=== PATIENT | female | born 1975 ===

== ENCOUNTER 2016-07-17 09:41 | Emergency (ER) | payer OTHER ==
--- NOTE | 2016-07-17 10:58 | ED ORDER SUMMARY ---
..... Patient: MIRIAM WILLIAM OrderSheet [facility] VisitID: [id number] [address] [place] [address] 41y, F Registration Date/Time: 07/17/2016 ORDER SHEET Weight: 79.3 kg (stated) Allergies: No Known Drug Allergy GENERAL ORDERS: MEDICATION ORDERS: DuoNeb Neb Tx 1 unit dose (10:00) (10:12 07/17/2016 Shalonda Espino) (10:12 Jolie) Albuterol Neb Tx 2.5 mg (NOW) (10:12 07/17/2016 Shalonda Espino) (10:13 Eulogioglraymond) IV FLUIDS: Solu-MEDROL IV 125 mg (NOW) (10:12 07/17/2016 Shalonda Espino) (Ack 10:28 MWinterer R.N.) (10:35 MWinterer R.N.) ORDER SHEET NOTES: [Electronically signed by Sanjeev Inman Dr. (10:58 07/17/2016)] [Electronically signed by Peace Johnson R.N. (12:06 07/17/2016)] [Electronically locked/signed by Peace Johnson R.N. (12:06 07/17/2016)]
--- NOTE | 2016-07-17 10:58 | ED NURSING NOTES ---
Clinical Report - Nurses [facility] [address] [place] [address] 07/17/2016 9:40 Patient: MIRIAM WILLIAM TRIAGE Acuity: LEVEL 2. Chief Complaint: DIFFICULTY BREATHING and "ASTHMA ATTACK". Alert. No acute distress. SEPSIS SCREEN: Sepsis Screen. Negative (no infection suspected/documented). --09:49 Peace Johnson R.N. 09:44 07/17/16. BP: 139/71. HR: 86. RR: 32. O2 saturation: 100% on room air. Temp: 97.4 F (oral). Pain level now: 02/23. --09:49 Peace Johnson R.N. Weight: 79.3 kg stated. Height/Length: 64 inches Per Patient. BMI: 30. --09:47 Peace Johnson R.N. Medications Albuterol Sulfate Inhalation. --09:46 Peace Johnson R.N. Glimepiride Oral (Tablet 2 mg) 1 tablet, daily. --09:47 Peace Johnson R.N. The following entry was struck and corrected by Peace Johnson R.N., 09:49 (07/17/16) Reason for correction - other(correction). <<STRICKEN ENTRY-- Glimepiride Oral (Tablet 2 mg) 1/2 tablet, BID. --09:47 Peace Johnson R.N. --END STRIKE>>. Medication/allergy information source: the patient. --09:49 Peace Johnson R.N. Allergies No Known Drug Allergy. --09:47 Peace Johnson R.N. History Arrived by private vehicle. Historian: patient. Accompanied by family. This started just prior to arrival. 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 SOCIAL HX: Never smoker. No alcohol use or drug use. FALL RISK ASSESSMENT: Fall risk assessment completed. No fall risk identified. NUTRITIONAL RISK ASSESSMENT: The nutritional risk assessment revealed no deficiencies. FUNCTIONAL ASSESSMENT: Functional assessment: no impairments noted. LEARNING NEEDS ASSESSMENT: The learning needs assessment revealed no barriers. SKIN INTEGRITY ASSESSMENT: Skin integrity risk assessment completed. No skin integrity risk identified. --09:49 Peace Johnson R.N. PROBLEMS: Asthma. Lumbar Strain. Anxiety Reaction. Diabetes Mellitus. --:47 Peace Johnson R.N. ADDITIONAL SURGERIES: . --09:47 Peace Johnson R.N. Assessment GENERAL / NEURO / PSYCH: Alert. Oriented X 4. Appears in no acute distress. Appears anxious. Florence Coma Scale: 15- eyes open spontaneously (4); best verbal response- oriented x 4 (5); best motor response- obeys commands (6). RESPIRATORY: Moderate respiratory distress. Accessory muscle use. Cough. Wheezing present. CVS: Capillary refill less than 2 seconds. GI / : Abdomen soft and nontender. SKIN: Mucous membranes are pink. Skin is warm and dry. --09:49 Peace Johnson R.N. Interventions ID band on patient. To treatment room. --09:49 Peace Johnson R.N. PHYSICAL ASSESSMENT To room via wheelchair. GENERAL / NEURO / PSYCH: Alert. Oriented X 4. Appears in no acute distress. HEENT: Mucous membranes are pink. RESPIRATORY: Moderate respiratory distress. The patient can speak a few words at a time. Accessory muscle use. Wheezing present. CVS: Capillary refill less than 2 seconds. GI / : Abdomen soft and nontender. SKIN: Skin is warm and dry. Normal skin turgor. --09:49 Peace Johnson R.N. NURSING PROGRESS NOTES 09:50 07/17/16. Patient gowned. Two patient identifiers checked. Call light placed in reach. Side rails up x 1. Bed placed in lowest position. Brakes of bed on. Patient ready for evaluation- chart flagged and ED physician notified. --09:50 Peace Johnson R.N. 09:55 07/17/2016 Site #1 started via IV in the right antecubital space with an 20g angiocath, with aseptic technique and good blood return; one attempt. Blood drawn: rainbow set. Labeled in the presence of the patient and sent to the lab. Saline lock flushed with 10 mL saline. --09:55 Peace Johnson R.N. 09:56 07/17/16. certified surgical tech/first assistant at the patient's bedside. --09:56 Peace Johnson R.N. 10:02 07/17/2016 Duoneb (Ipratropium-Albuterol) Neb TX Nebulizer 1 unit dose given. Given by the respiratory therapist. Allergies verified and confirmed 5 rights. Jun Henriquez --10:12 Jun Henriquez 10:13 07/17/2016 Albuterol Neb TX Nebulizer 1 unit dose given. Given by the respiratory therapist. Allergies verified and confirmed 5 rights. Jun Henriquez --10:13 Jun Henriquez 10:35 07/17/2016 SOLU-MEDROL (MethylPREDNISolone Sodium Succ) IVP 125 mg given over 1 minute(s) via site #1. Allergies verified and confirmed 5 rights. IV patency established. IV site checked: no pain, redness, or swelling. IV flushed thoroughly pre- and post-medication administration. IVP given by RN. --10:35 Peace Johnson R.N. DISPOSITION / DISCHARGE Departure time: 11:10 Jul 17 2016. Condition at departure: improved and stable. No learning barriers present. Discharge instructions provided and reviewed with the patient. Reviewed medication(s) side effects, precautions and dosing information. Prescription(s) given to the patient. Patient verbalized understanding. Written instructions provided in Kiswahili. The patient was discharged by the physician. She was discharged home and accompanied by family. She left the Emergency Department ambulatory and via private vehicle. Family member driving. --12:05 Peace Johnson R.N. 12:04 07/17/16. BP: 118/69. HR: 88. RR: 16. O2 saturation: 100% on room air. Temp: 98.5 F (oral). Pain level now: 0/10. --12:05 Peace Johnson R.N. Locked/Released at 07/17/2016 12:06 by Peace Johnson R.N.
--- NOTE | 2016-07-17 10:58 | ED CLINICAL REPORT ---
Clinical Report - Physicians/Mid Levels [facility] [address] [place] [address] 07/17/2016 9:40 Patient: MIRIAM WILLIAM Time Seen: 0955; initial patient contact. Arrived- By private vehicle. Historian- patient. HISTORY OF PRESENT ILLNESS Chief Complaint: WHEEZING. This started last night and is still present. It was abrupt in onset but is not gone now. The dyspnea is described as moderate. She has had dyspnea at rest. Asthma triggers: unknown. 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 (did not use her inhaler today). Similar symptoms previously: Recent medical care: Not recently seen/assessed. REVIEW OF SYSTEMS No nasal discharge, fever, headache or skin rash. All systems otherwise negative, except as recorded above. PAST HISTORY See nurses notes. SOCIAL HISTORY Never smoker. No alcohol use or drug use. Is a local resident. ADDITIONAL NOTES The nursing notes have been reviewed. PHYSICAL EXAM Vital Signs: 07/17/2016 09:44 BP: 139/71. HR: 86. RR: 32. O2 saturation: 100%. Temp: 97.4 F. Pain level now: 8/10. Blood pressure normal. Oxygen saturation normal. Appearance: Alert. Patient in mild distress. Eyes: Pupils equal, round and reactive to light. Eyes normal inspection. Neck: Normal inspection. Neck supple. CVS: Normal heart rate and rhythm. Heart sounds normal. Pulses normal. Respiratory: Mild respiratory distress with accessory muscle use, retractions, anxiety, tachypnea and hyperventilation. Wheezing present. No stridor, rales or rhonchi. Abdomen: Soft and nontender. No organomegaly. Back: Normal inspection. Skin: Skin warm and dry. Normal skin color. No rash. Normal skin turgor. Extremities: Extremities exhibit normal ROM. No lower extremity edema. PROGRESS AND PROCEDURES Course of Care: the patient is a 41-year-old female presenting for evaluation of wheezing and asthma exacerbation. Patient has a history of asthma. Patient reports that she had run out of her medications at home. Patient otherwise has no other concerns at this time. Patient reports no vision changes, numbness, tingling, weakness. No fevers or chills. Patient does not know what had caused this specific exacerbation. Breathing treatment was ordered. IV placed by RN because of patient's respiratory distress. IV Solu-Medrol be ordered. We'll evaluate patient after breathing treatment has been given. The patient does not significantly improve, we'll consider laboratory evaluation as well as chest x-ray. Patient significantly improved after the first DuoNeb. Patient is much more comfortable and breathing without any signs of distress. Discussion with patient in regards to her symptom. One more breathing treatment will be given as the patient did present in a mild amount of discomfort and would likely benefit from a second breathing treatment. Lungs are clear on reevaluation. We'll await second breathing treatment. After second breathing treatment was given, patient is significantly improved. Patient states she is back to normal. Patient is much more comfortable. There are no signs of respiratory distress. Patien good air throughout all lung arenas without any wheezing at all. I discussed with patient in regards to asthma medication. Patient reports she does not have a nebulizer at home. Prescription will be written for nebulizer as well as refill of her medications. Discussed the patient workup, diagnosis, home care, follow-up, and return precautions. All questions answered. Patient expressed understanding of these instructions and was agreeable to them. Because the pat albuterol and DuoNeb treatments, do not feel patient has AMI or pneumonia or pulmonary embolism. CLINICAL IMPRESSION 07/17/2016 09:44 BP: 139/71. HR: 86. RR: 32. O2 saturation: 100%. Temp: 97.4 F. Pain level now: 8/10. Blood pressure normal. Oxygen saturation normal. Mild persistent asthma with an acute exacerbation. No status asthmaticus. INSTRUCTIONS Warnings: GENERAL WARNINGS: Return or contact your physician immediately if your condition worsens or changes unexpectedly, if not improving as expected, or if other problems arise. Specifically return if pain, vomiting, bleeding, breathing difficulty or fever. Your Current Medications: CONTINUE TAKING THE FOLLOWING MEDICATIONS: Albuterol Sulfate Inhalation. Glimepiride Oral : Tablet 2 mg, 1 tablet daily. Prescription Medications: Albuterol HFA oral inhaler: inhale 1-2 puffs every 4 hours as needed for wheezing, difficulty breathing or shortness of breath. Dispense one (1) unit. No refill. Albuterol 0.083% Inhalation Solution: inhale 1 unit dose (3 mL) via nebulizer every 4 hours as needed for wheezing, difficulty breathing or shortness of breath. Dispense fifty (50) units. No refill. Fluticasone HFA oral inhaler 44 mcg/spray: inhale 1 puff every 24 hours. Rinse mouth after use. Dispense one (1) unit. No refill. Nebulizer machine for use with nebulizer solution. Dispense 1. Follow-up: Return to the emergency department as needed. Follow up with your doctor in three days. Reason for referral: recheck today's concerns. Summary of care provided to patient via paper. Screening today revealed the patient's blood pressure to be in the normal range. The patient should follow up with a primary care provider for blood pressure management. Understanding of the discharge instructions verbalized by patient and family. (Electronically signed by Sanjeev Inman Dr. 07/17/2016 10:58)
--- NOTE | 2016-07-17 10:58 | ED NURSING NOTES ---
Clinical Report - Nurses [facility] [address] [place] [address] 07/17/2016 9:40 Patient: MIRIAM WILLIAM TRIAGE Acuity: LEVEL 2. Chief Complaint: DIFFICULTY BREATHING and "ASTHMA ATTACK". Alert. No acute distress. SEPSIS SCREEN: Sepsis Screen. Negative (no infection suspected/documented). --09:49 Peace Johnson R.N. 09:44 07/17/16. BP: 139/71. HR: 86. RR: 32. O2 saturation: 100% on room air. Temp: 97.4 F (oral). Pain level now: 02/23. --09:49 Peace Johnson R.N. Weight: 79.3 kg stated. Height/Length: 64 inches Per Patient. BMI: 30. --09:47 Peace Johnson R.N. Medications Albuterol Sulfate Inhalation. --09:46 Peace Johnson R.N. Glimepiride Oral (Tablet 2 mg) 1 tablet, daily. --09:47 Peace Johnson R.N. The following entry was struck and corrected by Peace Johnson R.N., 09:49 (07/17/16) Reason for correction - other(correction). <<STRICKEN ENTRY-- Glimepiride Oral (Tablet 2 mg) 1/2 tablet, BID. --09:47 Peace Johnson R.N. --END STRIKE>>. Medication/allergy information source: the patient. --09:49 Peace Johnson R.N. Allergies No Known Drug Allergy. --09:47 Peace Johnson R.N. History Arrived by private vehicle. Historian: patient. Accompanied by family. This started just prior to arrival. 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 SOCIAL HX: Never smoker. No alcohol use or drug use. FALL RISK ASSESSMENT: Fall risk assessment completed. No fall risk identified. NUTRITIONAL RISK ASSESSMENT: The nutritional risk assessment revealed no deficiencies. FUNCTIONAL ASSESSMENT: Functional assessment: no impairments noted. LEARNING NEEDS ASSESSMENT: The learning needs assessment revealed no barriers. SKIN INTEGRITY ASSESSMENT: Skin integrity risk assessment completed. No skin integrity risk identified. --09:49 Peace Johnson R.N. PROBLEMS: Asthma. Lumbar Strain. Anxiety Reaction. Diabetes Mellitus. --:47 Peace oJhnson R.N. ADDITIONAL SURGERIES: . --09:47 Peace Johnson R.N. Assessment GENERAL / NEURO / PSYCH: Alert. Oriented X 4. Appears in no acute distress. Appears anxious. Florence Coma Scale: 15- eyes open spontaneously (4); best verbal response- oriented x 4 (5); best motor response- obeys commands (6). RESPIRATORY: Moderate respiratory distress. Accessory muscle use. Cough. Wheezing present. CVS: Capillary refill less than 2 seconds. GI / : Abdomen soft and nontender. SKIN: Mucous membranes are pink. Skin is warm and dry. --09:49 Peace Johnson R.N. Interventions ID band on patient. To treatment room. --09:49 Peace Johnson R.N. PHYSICAL ASSESSMENT To room via wheelchair. GENERAL / NEURO / PSYCH: Alert. Oriented X 4. Appears in no acute distress. HEENT: Mucous membranes are pink. RESPIRATORY: Moderate respiratory distress. The patient can speak a few words at a time. Accessory muscle use. Wheezing present. CVS: Capillary refill less than 2 seconds. GI / : Abdomen soft and nontender. SKIN: Skin is warm and dry. Normal skin turgor. --09:49 Peace Johnson R.N. NURSING PROGRESS NOTES 09:50 07/17/16. Patient gowned. Two patient identifiers checked. Call light placed in reach. Side rails up x 1. Bed placed in lowest position. Brakes of bed on. Patient ready for evaluation- chart flagged and ED physician notified. --09:50 Peace Johnson R.N. 09:55 07/17/2016 Site #1 started via IV in the right antecubital space with an 20g angiocath, with aseptic technique and good blood return; one attempt. Blood drawn: rainbow set. Labeled in the presence of the patient and sent to the lab. Saline lock flushed with 10 mL saline. --09:55 Peace Johnson R.N. 09:56 07/17/16. construction tech at the patient's bedside. --09:56 Peace Johnson R.N. 10:02 07/17/2016 Duoneb (Ipratropium-Albuterol) Neb TX Nebulizer 1 unit dose given. Given by the respiratory therapist. Allergies verified and confirmed 5 rights. Jun Henriquez --10:12 Jun Henriquez 10:13 07/17/2016 Albuterol Neb TX Nebulizer 1 unit dose given. Given by the respiratory therapist. Allergies verified and confirmed 5 rights. Jun Henriquez --10:13 Jun Henriquez 10:35 07/17/2016 SOLU-MEDROL (MethylPREDNISolone Sodium Succ) IVP 125 mg given over 1 minute(s) via site #1. Allergies verified and confirmed 5 rights. IV patency established. IV site checked: no pain, redness, or swelling. IV flushed thoroughly pre- and post-medication administration. IVP given by RN. --10:35 Peace Johnson R.N. DISPOSITION / DISCHARGE Departure time: 11:10 Jul 17 2016. Condition at departure: improved and stable. No learning barriers present. Discharge instructions provided and reviewed with the patient. Reviewed medication(s) side effects, precautions and dosing information. Prescription(s) given to the patient. Patient verbalized understanding. Written instructions provided in Amharic. The patient was discharged by the physician. She was discharged home and accompanied by family. She left the Emergency Department ambulatory and via private vehicle. Family member driving. --12:05 Peace Johnson R.N. 12:04 07/17/16. BP: 118/69. HR: 88. RR: 16. O2 saturation: 100% on room air. Temp: 98.5 F (oral). Pain level now: 0/10. --12:05 Peace Johnson R.N. Locked/Released at 07/17/2016 12:06 by Peace Johnson R.N.
--- NOTE | 2016-07-17 10:58 | ED ORDER SUMMARY ---
..... Patient: MIRIAM WILLIAM OrderSheet [facility] VisitID: [id number] [address] [place] [address] 41y, F Registration Date/Time: 07/17/2016 ORDER SHEET Weight: 79.3 kg (stated) Allergies: No Known Drug Allergy GENERAL ORDERS: MEDICATION ORDERS: DuoNeb Neb Tx 1 unit dose (10:00) (10:12 07/17/2016 Shalonda Espino) (10:12 Jolie) Albuterol Neb Tx 2.5 mg (NOW) (10:12 07/17/2016 Shalonda Espino) (10:13 Eulogioglraymond) IV FLUIDS: Solu-MEDROL IV 125 mg (NOW) (10:12 07/17/2016 Shalonda Espino) (Ack 10:28 MWinterer R.N.) (10:35 MWinterer R.N.) ORDER SHEET NOTES: [Electronically signed by Sanjeev Inman Dr. (10:58 07/17/2016)] [Electronically signed by Peace Johnson R.N. (12:06 07/17/2016)] [Electronically locked/signed by Peace Johnson R.N. (12:06 07/17/2016)]
--- NOTE | 2016-07-17 12:06 | ED DISCHARGE INSTRUCTIONS ---
Patient: MIRIAM WILLIAM General Instructions [facility] VisitID: [id number] [place] [address] 41y, F Registration Date/Time: 07/17/2016 07/17/2016 09:44 BP: 139/71. HR: 86. RR: 32. O2 saturation: 100%. Temp: 97.4 F. Pain level now: 8/10. Blood pressure normal. Oxygen saturation normal. Mild persistent asthma with an acute exacerbation. No status asthmaticus. INSTRUCTIONS Warnings: GENERAL WARNINGS: Return or contact your physician immediately if your condition worsens or changes unexpectedly, if not improving as expected, or if other problems arise. Specifically return if pain, vomiting, bleeding, breathing difficulty or fever. Your Current Medications: CONTINUE TAKING THE FOLLOWING MEDICATIONS: Albuterol Sulfate Inhalation. Glimepiride Oral : Tablet 2 mg, 1 tablet daily. Prescription Medications: Albuterol HFA oral inhaler: inhale 1-2 puffs every 4 hours as needed for wheezing, difficulty breathing or shortness of breath. Dispense one (1) unit. No refill. Albuterol 0.083% Inhalation Solution: inhale 1 unit dose (3 mL) via nebulizer every 4 hours as needed for wheezing, difficulty breathing or shortness of breath. Dispense fifty (50) units. No refill. Fluticasone HFA oral inhaler 44 mcg/spray: inhale 1 puff every 24 hours. Rinse mouth after use. Dispense one (1) unit. No refill. Nebulizer machine for use with nebulizer solution. Dispense 1. Follow-up: Return to the emergency department as needed. Follow up with your doctor in three days. Reason for referral: recheck today's concerns. Summary of care provided to patient via paper. Screening today revealed the patient's blood pressure to be in the normal range. The patient should follow up with a primary care provider for blood pressure management. Understanding of the discharge instructions verbalized by patient and family. ADDITIONAL INFORMATION Asthma [Adult] Asthma is a disease where the small air passages within the lung go into spasm and restrict the flow of air. Inflammation and swelling of the airways cause further restriction. During an acute asthma attack, these factors cause difficulty breathing, wheezing, cough and chest tightness. An asthma attack can be triggered by many things. Common triggers include the common cold, bronchitis, pneumonia, irritants such as smoke or pullutants in the air, emotional upset and heavy exercise. Inmany adults with asthma, allergies todust, mold, pollen and animal dander can cause an asthma attack. Skipping doses of daily asthma medicine can also bring on an asthma attack. Asthma can be controlled with proper medicines and decreased exposure to known allergens. Home Care: Take prescribed medicine exactly at the times advised. If you have a hand-held inhaler or aerosol breathing medicine, do not use it more than once every four hours, unless told to do so. (If you need this medicine more than every four hours, you may need to return to the Emergency Room.) If prescribed an antibiotic or prednisone, take all of the medicine even if you are feeling better after a few days. Do not smoke. Avoid being exposed to the smoke of others. Some persons with asthma have worsening of their symptoms when they take aspirin and non-steroidal medicines like ibuprofen (Motrin, Advil) and naproxen (Aleve, Naprosyn). Talk to your doctor if you think this may apply to you. Acetaminophen (Tylenol)should be safe to use. Follow Up with your doctor, or as advised by our staff. Always bring all of your current medicines with you for your doctor to see. If you do not already have one, talk to your doctor about developing a personalized "Asthma Action Plan." [NOTE: A pneumococcal vaccine and yearly flu shot (every fall) are recommended. Ask your doctor about this.] Get Prompt Medical Attention if any of the following occur: Increased wheezing or shortness of breath Need to use your inhalers more often than usual without relief Fever of 100.4F (38C) or higher, or as directed by your healthcare provider Coughing up lots of dark-colored or bloody sputum (mucus) Chest pain with each breath You do not start to improve within 24 hours Call 911 If Any Of The Following Occur : Trouble walking or talking because of shortness of breath If you use a peak flow meter andyou are still in the red zone (less than 50 percent) 15 minutes after using inhaler medication Lips or fingernails turning flores or blue Albuterol Sulfate Pressurized inhalation, suspension What is this medicine? ALBUTEROL (al BYOO ter ole) is a bronchodilator. It helps open up the airways in your lungs to make it easier to breathe. This medicine is used to treat and to prevent bronchospasm. How should I use this medicine? This medicine is for inhalation through the mouth. Follow the directions on your prescription label. Take your medicine at regular intervals. Do not use more often than directed. Make sure that you are using your inhaler correctly. Ask you doctor or health care provider if you have any questions. Talk to your pin or clip fastener regarding the use of this medicine in children. Special care may be needed. What side effects may I notice from receiving this medicine? Side effects that you should report to your doctor or health patient care nursing assistant as soon as possible: allergic reactions like skin rash, itching or hives, swelling of the face, lips, or tongue breathing problems chest pain feeling faint or lightheaded, falls high blood pressure irregular heartbeat fever muscle cramps or weakness pain, tingling, numbness in the hands or feet vomiting Side effects that usually do not require medical attention (report to your doctor or health patient care nursing assistant if they continue or are bothersome): cough difficulty sleeping headache nervousness or trembling stomach upset stuffy or runny nose throat irritation unusual taste What may interact with this medicine? anti-infectives like chloroquine and pentamidine caffeine cisapride diuretics medicines for colds medicines for depression or for emotional or psychotic conditions medicines for weight loss including some herbal products methadone some antibiotics like clarithromycin, erythromycin, levofloxacin, and linezolid some heart medicines steroid hormones like dexamethasone, cortisone, hydrocortisone theophylline thyroid hormones What if I miss a dose? If you miss a dose, use it as soon as you can. If it is almost time for your next dose, use only that dose. Do not use double or extra doses. Where should I keep my medicine? Keep out of the reach of children. Store at room temperature between 15 and 30 degrees C (59 and 86 degrees F). The contents are under pressure and may burst when exposed to heat or flame. Do not freeze. This medicine does not work as well if it is too cold. Throw away any unused medicine after the expiration date. Inhalers need to be thrown away after the labeled number of puffs have been used or by the expiration date; whichever comes first. Ventolin HFA should be thrown away 12 months after removing from foil pouch. Check the instructions that come with your medicine. What should I tell my health care provider before I take this medicine? They need to know if you have any of the following conditions: diabetes heart disease or irregular heartbeat high blood pressure pheochromocytoma seizures thyroid disease an unusual or allergic reaction to albuterol, levalbuterol, sulfites, other medicines, foods, dyes, or preservatives or trying to get breast-feeding What should I watch for while using this medicine? Tell your doctor or health patient care nursing assistant if your symptoms do not improve. Do not use extra albuterol. If your asthma or bronchitis gets worse while you are using this medicine, call your doctor right away. If your mouth gets dry try chewing sugarless gum or sucking hard candy. Drink water as directed. Albuterol Sulfate Nebulizer solution What is this medicine? ALBUTEROL (al BYOO ter ole) is a bronchodilator. It helps to open up the airways in your lungs to make it easier to breathe. This medicine is used to treat and to prevent bronchospasm. How should I use this medicine? This medicine is used in a nebulizer. Nebulizers make a liquid into an aerosol that you breathe in through your mouth or your mouth and nose into your lungs. You will be taught how to use your nebulizer. Follow the directions on your prescription label. Take your medicine at regular intervals. Do not use more often than directed. Talk to your pin or clip fastener regarding the use of this medicine in children. Special care may be needed. What side effects may I notice from receiving this medicine? Side effects that you should report to your doctor or health patient care nursing assistant as soon as possible: allergic reactions like skin rash, itching or hives, swelling of the face, lips, or tongue breathing problems chest pain feeling faint or lightheaded, falls high blood pressure irregular heartbeat fever muscle cramps or weakness pain, tingling, numbness in the hands or feet vomiting Side effects that usually do not require medical attention (report to your doctor or health patient care nursing assistant if they continue or are bothersome): cough difficulty sleeping headache nervousness, trembling stomach upset stuffy or runny nose throat irritation unusual taste What may interact with this medicine? anti-infectives like chloroquine and pentamidine caffeine cisapride diuretics medicines for colds medicines for depression or emotional or psychotic conditions medicines for weight loss including some herbal products methadone some antibiotics like clarithromycin, erythromycin, levofloxacin, and linezolid some heart medicines steroid hormones like dexamethasone, cortisone, hydrocortisone theophylline thyroid hormones What if I miss a dose? If you miss a dose, use it as soon as you can. If it is almost time for your next dose, use only that dose. Do not use double or extra doses. Where should I keep my medicine? Keep out of the reach of children. Store between 2 and 25 degrees C (36 and 77 degrees F). Do not freeze. Protect from light. Throw away any unused medicine after the expiration date. Most products are kept in the foil package until time of use. Some products can be used up to 1 week after they are removed from the foil pouch. Check the instructions that come with your medicine. What should I tell my health care provider before I take this medicine? They need to know if you have any of the following conditions: diabetes heart disease or irregular heartbeat high blood pressure pheochromocytoma seizures thyroid disease an unusual or allergic reaction to albuterol, levalbuterol, sulfites, other medicines, foods, dyes, or preservatives or trying to get breast-feeding What should I watch for while using this medicine? Tell your doctor or health patient care nursing assistant if your symptoms do not improve. Do not use extra albuterol. Call your doctor right away if your asthma or bronchitis gets worse while you are using this medicine. If your mouth gets dry try chewing sugarless gum or sucking hard candy. Drink water as directed. You have been given the following additional information: Asthma, Acute (Adult) Albuterol Sulfate Pressurized inhalation, suspension Albuterol Sulfate Nebulizer solution (Electronically signed by Sanjeev Inman Dr. 07/17/2016 10:58)
--- NOTE | 2016-07-17 12:06 | ED MAR SUMMARY ---
..... Medication Administration Record [facility] [address] [place] [place] [address] Patient: MIRIAM WILLIAM Visit ID: [id number] 41y, F Weight: 79.3 kg Height/Length: 64 in BMI: 30 ALLERGIES: No Known Drug Allergy Given 10:02 07/17/2016 Jun Henriquez, Medication Administered: DUONEB [NEB TX] (IPRATROPIUM-ALBUTEROL), Dose: 1 unit dose Nebulizer Neb TX. Medication Ordered: DuoNeb Neb Tx 1 unit dose (10:00). Given 10:13 07/17/2016 Jun Henriquez, Medication Administered: ALBUTEROL [NEB TX], Dose: 1 unit dose Nebulizer Neb TX. Medication Ordered: Albuterol Neb Tx 2.5 mg (NOW). Given 10:35 07/17/2016 Peace Johnson R.N. Medication Administered: SOLU-MEDROL [IVP] (METHYLPREDNISOLONE SODIUM SUCC), Dose: 125 mg IVP over 1 minute(s), Site: #1 right AC. Medication Ordered: Solu-MEDROL IV 125 mg (NOW).
--- NOTE | 2016-07-17 12:06 | ED MED RECONCILIATION SUMMARY ---
Patient: MIRIAM WILLIAM Medication Reconciliation Report [facility] VisitID: [id number] [address] [place] [address] 41y, F Registration Date/Time: 07/17/2016 Weight: 79.3 kg Height/Length: 64 in. BMI: 30.0 ALLERGIES: No Known Drug Allergy The patient's Home Medications are listed below: CONTINUE TAKING THE FOLLOWING MEDICATIONS: Albuterol Sulfate Inhalation Glimepiride Oral (2 mg) 1 tablet, daily The source(s) of the original Home Medication information: patient The following Medications were given to the patient in the Emergency Department: Duoneb [Neb Tx] Neb TX 1 unit dose, administered: 07/17/2016 10:02:00 AM Albuterol [Neb Tx] Neb TX 1 unit dose, administered: 07/17/2016 10:13:00 AM SOLU-MEDROL [IVP] IVP 125 mg, administered: 07/17/2016 10:35:00 AM The following Medications were prescribed to the patient: Nebulizer machine for use with nebulizer solution. Dispense 1. -- Sanjeev Inman Dr. Albuterol HFA oral inhaler: inhale 1-2 puffs every 4 hours as needed for wheezing, difficulty breathing or shortness of breath. Dispense one (1) unit. No refill. -- Sanjeev Inman Dr. Albuterol 0.083% Inhalation Solution: inhale 1 unit dose (3 mL) via nebulizer every 4 hours as needed for wheezing, difficulty breathing or shortness of breath. Dispense fifty (50) units. No refill. -- Sanjeev Inman Dr. Fluticasone HFA oral inhaler 44 mcg/spray: inhale 1 puff every 24 hours. Rinse mouth after use. Dispense one (1) unit. No refill. -- Sanjeev Inman Dr.
--- NOTE | 2016-07-17 12:06 | ED MED RECONCILIATION SUMMARY ---
Patient: MIRIAM WILLIAM Medication Reconciliation Report [facility] VisitID: [id number] [address] [place] [address] 41y, F Registration Date/Time: 07/17/2016 Weight: 79.3 kg Height/Length: 64 in. BMI: 30.0 ALLERGIES: No Known Drug Allergy The patient's Home Medications are listed below: CONTINUE TAKING THE FOLLOWING MEDICATIONS: Albuterol Sulfate Inhalation Glimepiride Oral (2 mg) 1 tablet, daily The source(s) of the original Home Medication information: patient The following Medications were given to the patient in the Emergency Department: Duoneb [Neb Tx] Neb TX 1 unit dose, administered: 07/17/2016 10:02:00 AM Albuterol [Neb Tx] Neb TX 1 unit dose, administered: 07/17/2016 10:13:00 AM SOLU-MEDROL [IVP] IVP 125 mg, administered: 07/17/2016 10:35:00 AM The following Medications were prescribed to the patient: Nebulizer machine for use with nebulizer solution. Dispense 1. -- Sanjeev Inman Dr. Albuterol HFA oral inhaler: inhale 1-2 puffs every 4 hours as needed for wheezing, difficulty breathing or shortness of breath. Dispense one (1) unit. No refill. -- Sanjeev Inman Dr. Albuterol 0.083% Inhalation Solution: inhale 1 unit dose (3 mL) via nebulizer every 4 hours as needed for wheezing, difficulty breathing or shortness of breath. Dispense fifty (50) units. No refill. -- Sanjeev Inman Dr. Fluticasone HFA oral inhaler 44 mcg/spray: inhale 1 puff every 24 hours. Rinse mouth after use. Dispense one (1) unit. No refill. -- Sanjeev Inman Dr.
--- NOTE | 2016-07-17 12:06 | ED MAR SUMMARY ---
..... Medication Administration Record [facility] [address] [place] [address] Patient: MIRIAM WILLIAM Visit ID: [id number] 41y, F Weight: 79.3 kg Height/Length: 64 in BMI: 30 ALLERGIES: No Known Drug Allergy Given 10:02 07/17/2016 Jun Henriquez, Medication Administered: DUONEB [NEB TX] (IPRATROPIUM-ALBUTEROL), Dose: 1 unit dose Nebulizer Neb TX. Medication Ordered: DuoNeb Neb Tx 1 unit dose (10:00). Given 10:13 07/17/2016 Jun Henriquez, Medication Administered: ALBUTEROL [NEB TX], Dose: 1 unit dose Nebulizer Neb TX. Medication Ordered: Albuterol Neb Tx 2.5 mg (NOW). Given 10:35 07/17/2016 Peace Johnson R.N. Medication Administered: SOLU-MEDROL [IVP] (METHYLPREDNISOLONE SODIUM SUCC), Dose: 125 mg IVP over 1 minute(s), Site: #1 right AC. Medication Ordered: Solu-MEDROL IV 125 mg (NOW).
== END 2016-07-17 11:10 | disposition home or self-care (01) ==
LOC: ED SRH 09:41
DX: J45.31 Mild persistent asthma with (acute) exacerbation (principal); E11.9 Type 2 diabetes mellitus without complications; Z87.09 Personal history of other diseases of the respiratory system; Z79.899 Other long term (current) drug therapy

== ENCOUNTER 2016-08-08 18:05 | Emergency (ER) | payer OTHER ==
--- NOTE | 2016-08-08 19:01 | DIAGNOSTIC IMAGING REPORT ---
PROCEDURE: XR CHEST 2 VIEW INDICATION: SHORTNESS OF BREATH TECHNIQUE: PA and lateral views. COMPARISON: Compared to chest x-ray and 10/17/2015. FINDINGS: Lungs are clear. Heart and mediastinum are normal. Thorax is normal. IMPRESSION: 1. Negative chest.
--- NOTE | 2016-08-08 19:45 | ED ORDER SUMMARY ---
..... Patient: MIRIAM WILLIAM OrderSheet [facility] VisitID: [id number] [address] [place] [address] 41y, F Registration Date/Time: 08/08/2016 ORDER SHEET Weight: 81.6 kg (stated) Allergies: No Known Drug Allergy GENERAL ORDERS: Chest 2V Urgent (18:18 08/08/2016 EKoroleva P.A.-C) (18:35 Walt) Music Education Adjunct Professor (Continuous) (18:19 08/08/2016 EKoroleva P.A.-C) (18:37 DDean R.N.) CBC w Diff Urgent (18:19 08/08/2016 EKoroleva P.A.-C) (18:27 JRomanelli R.N.) CMP Urgent (18:19 08/08/2016 EKoroleva P.A.-C) (18:27 JRomanelli R.N.) EKG - ER Stat (18:19 08/08/2016 EKoroleva P.A.-C) (18:46 Nadir) POC Glucose (18:19 08/08/2016 EKoroleva P.A.-C) (18:58 DDean R.N.) Troponin-I Urgent (18:20 08/08/2016 EKoroleva P.A.-C) (18:27 JRomanelli R.N.) US Abdomen Limited (No) Urgent (19:21 08/08/2016 EKoroleva P.A.-C) (Ack 19:31 Pradeep) (19:54 DDean R.N.) MEDICATION ORDERS: DuoNeb Neb Tx 1 unit dose (NOW) (18:19 08/08/2016 EKoroleva P.A.-C) (18:24 JAYcCarson) Albuterol Neb Tx 2.5 mg (NOW, with pediatric spacer) (18:19 08/08/2016 EKoroleva P.A.-C) (Cancelled: Physician Order19:02 RKyolande) IV FLUIDS: IV Saline Lock (18:19 08/08/2016 EKoroleva P.A.-C) (18:27 DDean R.N.) ORDER SHEET NOTES: [Electronically signed by Nichole Adair R.N. (19:55 08/08/2016)] [Electronically signed by Vicenta Beaver P.A.-C (21:29 08/08/2016)] [Electronically locked/signed by Nichole Adair R.N. (19:55 08/08/2016)]
--- NOTE | 2016-08-08 19:45 | ED ORDER SUMMARY ---
..... Patient: MIRIAM WILLIAM OrderSheet [facility] VisitID: [id number] [address] [place] [address] 41y, F Registration Date/Time: 08/08/2016 ORDER SHEET Weight: 81.6 kg (stated) Allergies: No Known Drug Allergy GENERAL ORDERS: Chest 2V Urgent (18:18 08/08/2016 EKoroleva P.A.-C) (18:35 Walt) Software Developer Consultant (Continuous) (18:19 08/08/2016 EKoroleva P.A.-C) (18:37 DDean R.N.) CBC w Diff Urgent (18:19 08/08/2016 EKoroleva P.A.-C) (18:27 JRomanelli R.N.) CMP Urgent (18:19 08/08/2016 EKoroleva P.A.-C) (18:27 JRomanelli R.N.) EKG - ER Stat (18:19 08/08/2016 EKoroleva P.A.-C) (18:46 Nadir) POC Glucose (18:19 08/08/2016 EKoroleva P.A.-C) (18:58 DDean R.N.) Troponin-I Urgent (18:20 08/08/2016 EKoroleva P.A.-C) (18:27 JRomanelli R.N.) US Abdomen Limited (No) Urgent (19:21 08/08/2016 EKoroleva P.A.-C) (Ack 19:31 Pradeep) (19:54 DDean R.N.) MEDICATION ORDERS: DuoNeb Neb Tx 1 unit dose (NOW) (18:19 08/08/2016 EKoroleva P.A.-C) (18:24 JAYcCarson) Albuterol Neb Tx 2.5 mg (NOW, with pediatric spacer) (18:19 08/08/2016 EKoroleva P.A.-C) (Cancelled: Physician Order19:02 RKyolande) IV FLUIDS: IV Saline Lock (18:19 08/08/2016 EKoroleva P.A.-C) (18:27 DDean R.N.) ORDER SHEET NOTES: [Electronically signed by Nichole Adair R.N. (19:55 08/08/2016)] [Electronically signed by Vicenta Beaver P.A.-C (21:29 08/08/2016)] [Electronically locked/signed by Nichole Adair R.N. (19:55 08/08/2016)]
--- NOTE | 2016-08-08 19:45 | ED CLINICAL REPORT ---
Clinical Report - Physicians/Mid Levels [facility] [address] [place] [address] 08/08/2016 18:04 Patient: MIRIAM WILLIAM Time Seen: 19:06 Aug 08 2016. Arrived- By private vehicle. Historian- patient. HISTORY OF PRESENT ILLNESS Chief Complaint: DYSPNEA. This started just prior to arrival and is still present. The dyspnea is described as moderate. No cough or sputum production. 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 no recent illness, No fevers. Patient with no new back pain. No chest pain. No recent travel. No lower extremity swelling, no history of DVT or PE.). REVIEW OF SYSTEMS No sore throat, fever, chills, nausea or diarrhea. All systems otherwise negative, except as recorded above. SOCIAL HISTORY Never smoker. No alcohol use. ADDITIONAL NOTES The nursing notes have been reviewed. PHYSICAL EXAM Vital Signs: 08/08/2016 18:00 BP: 88/57. HR: 113. RR: 38. O2 saturation: 94%. Temp: 99.3 F. Pain level now: 4/10. Appearance: Alert. Anxious. Appears to be in pain. Patient in mild distress. ENT: Ears normal. Nose normal. Neck: Normal inspection. CVS: Tachycardia. Heart sounds normal. Respiratory: No respiratory distress. Respiratory distress. Accessory muscle use. Wheezing present. Breath sounds normal. Abdomen: Moderate tenderness in the epigastric area. No distention. Back: Normal inspection. No CVA tenderness. Skin: Skin warm. Normal skin color. Neuro: Oriented X 3. LABS, X-RAYS, AND EKG EKG: EKG time: (1844). No acute process. No acute ischemia. Rate: 95. Normal NIC. Normal QRS complex. Normal axis. Normal ST and T waves and QT. The EKG appears to be a good tracing. Chest X-ray: (IMPRESSION: 1. Negative chest. Electronically Final signed by:Gabriel Ingram MD 08/08/2016 6:58:32 PM). Abdominal Sonogram: (IMPRESSION: 1. 3.3 cm gallstone 2. Hepatomegaly with steatosis Electronically Final signed by:Bernabe Lim MD 08/08/2016 8:04:15 PM). Laboratory Tests: CBC w Diff: (GUILLERMO: 08/08/2016 18:15) ( [facility] 18:36) Final results Test Result Flag Units (Reference) WHITE BLOOD COUNT 12.6 H K/uL (4.5-11.5) RED BLOOD COUNT 5.03 M/uL (4.00-5.20) HEMOGLOBIN 14.8 gm/dL (12.0-16.0) HEMATOCRIT 44.8 % (36.0-46.0) MEAN CELL VOLUME 89 fL (80-100) MEAN CORPUSCULAR HGB 30 pg (26-34) MEAN CORPUSCULAR HGB CONC 33 g/dL (31-37) RED CELL DISTRIBUTION WIDTH 12.5 % (11.6-14.8) PLATELET COUNT 253 K/uL (150-400) NEUTROPHIL % 57.2 % (50-75) LYMPH % 37.4 % (25-40) MONO % 4.3 % (3-14) EOSINOPHIL % 0.7 % (0-4) BASOPHIL % 0.4 % (0-2) Troponin-I: (GUILLERMO: 08/08/2016 18:15) ( [facility] 08/08/2016 18:52) Final results Test Result Flag Units (Reference) TROPONIN I <0.05 L ng/mL (0.00-1.5) TROPONIN REFERENCE RANGE:<0.1 NEGATIVE0.1-1.5 INDETERMINANT>1.5 POSITIVE CMP: (GUILLERMO: 08/08/2016 18:15) ( [facility] 08/08/2016 18:47) Final results Test Result Flag Units (Reference) GLUCOSE 169 H mg/dL (70-110) BUN 11 mg/dL (7-18) CREATININE 0.6 mg/dL (0.6-1.3) Estimated GFR >60 mL/min Estimated GFR- >60 mL/min Note: Persistent reduction over 3 months in eGFR<60 mL/min/1.73 m2 defines CKD. Patients with eGFR values>=60 mL/min/1.73 m2 may also have CKD if evidence ofpersistent proteinuria. Additional information may be foundat www.kidney.org. SODIUM 140 mmol/L (136-145) POTASSIUM 3.2 L mmol/L (3.5-5.1) CHLORIDE 101 mmol/L (98-107) CARBON DIOXIDE 22 mmol/L (21-32) CALCIUM 9.5 mg/dL (8.5-10.1) TOTAL PROTEIN 8.0 g/dL (6.4-8.2) ALBUMIN 4.2 g/dL (3.3-5.0) BILIRUBIN, TOTAL 0.4 mg/dL (0.0-1.0) ALKALINE PHOSPHATASE 127 H U/L (46-116) AST (SGOT) 68 H U/L (15-37) ALT (SGPT) 111 H U/L (12-78) . PROGRESS AND PROCEDURES Course of Care: patient with elevated LFTs, with epigastric pain, thus ultrasound of the abdomen was ordered, with no signs of acute cholecystitis. Patient with improvement of her wheezing, as well as respiratory status after nebulizer treatment in the ER. Chest x-ray without any suggestive findings of infectious process. Patient has calmed down, she had a touch of hyperventilation upon arrival, and perhaps history of anxiety. 08/08/2016 19:45 BP: 110/71. HR: 98. RR: 20. O2 saturation: 100%. Pain level now: 5/10. 08/08/2016 19:43 BP: 110/71. HR: 98. RR: 20. O2 saturation: 100%. Pain level now: 5/10. Patient is stable. Symptoms better. Patient/family counseled. Disposition: Discharged. CLINICAL IMPRESSION Mild persistent asthma. Diabetes. Elevated LFT. INSTRUCTIONS No strenuous activity. Rest. (hydrate plenty). OTC Medications: Take OTC medications according to label instructions. Available over the counter. Acetaminophen (available over the counter): take according to label instructions. Motrin (available over the counter): take according to label instructions. Follow-up: Follow up with your doctor in four days as needed. (Electronically signed by Vicenta Beaver P.ASavana 08/08/2016 21:29)
--- NOTE | 2016-08-08 19:45 | ED NURSING NOTES ---
Clinical Report - Nurses [facility] [address] [place] [address] 08/08/2016 18:04 Patient: MIRIAM WILLIAM TRIAGE Triage time 1800. Acuity: LEVEL 2. Chief Complaint: SHORTNESS OF BREATH and "ASTHMA ATTACK". 18:00. CHINTAN COMA SCORE: [place] Coma Scale: 15- eyes open spontaneously (4); best verbal response- oriented x 4 (5); best motor response- obeys commands (6). --18:23 Nichole Adair R.N. 18:00 08/08/16. BP: 88/57. HR: 113. RR: 38. O2 saturation: 94% on room air. Temp: 99.3 F. Pain level now: 4/10. Additional comments: headache and "all over". --18:23 Nichole Adair R.N. Weight: 81.6 kg stated. Height/Length: 64 inches Per Patient. BMI: 30.9. --18:15 Nichole Adair R.N. Medications Albuterol Sulfate Inhalation 2 puffs, PRN. --18:11 Nichole Adair R.N. Glimepiride Oral (Tablet 2 mg) 1 tablet, daily. --18:11 Nichole Adair R.N. The following entry was struck and corrected by Nichole Adair R.N., 18:28 (08/08/16) Reason for correction - other(correction). <<STRICKEN ENTRY-- Albuterol Sulfate Inhalation. --18:11 Nichole Adair R.N. --END STRIKE>>. Allergies No Known Drug Allergy. --18:11 Nichole Adair R.N. History Arrived by private vehicle. Historian: patient. Accompanied by family. Primary physician (rama). Onset. (1600). She has had fever and a cough. ( c/o headache and back pain at trapezius area). SOCIAL HX: Never smoker. No alcohol use. --18:23 Nichole Adair R.N. PROBLEMS: Asthma. Lumbar Strain. Anxiety Reaction. Diabetes Mellitus. --18:11 Nichole Adair R.N. ADDITIONAL SURGERIES: . --18:11 Nichole Adair R.N. Interventions ID band on patient. To treatment room. --18:23 Nichole Adair R.N. PHYSICAL ASSESSMENT 18:00. To room via wheelchair. Patient gowned. GENERAL / NEURO / PSYCH: Alert. Oriented X 4. Appears anxious. RESPIRATORY: The patient is unable to speak. Cough. Decreased breath sounds. Wheezing present. CVS: Capillary refill less than 2 seconds. GI / : Abdomen soft. SKIN: Skin is warm and dry. --18:19 Nichole Adair R.N. NURSING PROGRESS NOTES 18:00. Oxygen administered by face mask at 11 liters. Patient gowned. Head of bed elevated. Reassurance given. Patient identifiers checked. Call light placed in reach. Side rails up. Bed placed in lowest position. Patient ready for evaluation- chart flagged. --18:16 Nichole Adair R.N. 18:17 08/08/2016 Site #1 started via IV in the right antecubital space with an 20g angiocath, with aseptic technique and good blood return; one attempt. Blood drawn: rainbow set and cultures x1. Labeled in the presence of the patient and sent to the lab. Saline lock flushed with 10 mL saline (done by GIL Menendez). --18:17 Nichole Adair R.N. 18:10. ( RT here, Duo-neb treatment started). --18:18 Nichole Adair R.N. 18:14 08/08/2016 Duoneb (Ipratropium-Albuterol) Neb TX Nebulizer 1 unit dose given. --18:24 Rose Agee 18:20. ( Pt much better after breathing treatment. Pt states she is "breathing better" and now speaking in full sentences. Family at bedside). --18:24 Nichole Adair R.N. 18:25 08/08/16. Patient transported to radiology by stretcher with tech. --18:25 Nichole Adair R.N. 18:35. Patient returned from radiology by stretcher with tech. --18:38 Nichole Adair R.N. 18:38. ( Pt states that she has a bad headache, and she is having pain in her low back. Talking very rapidly to family members, appears in no acute distress). --18:40 Nichole Adair R.N. EKG time: (1843). EKG was ordered, performed by a tech and shown to the ED physician. --18:45 Peggy Simons Finger stick glucose: 166 mg/dL; ordered; performed by tech; result shown to the RN. --18:51 Peggy Simons 18:45 08/08/16. BP: 135/77. HR: 102. RR: 22. O2 saturation: 100% on room air. Temp: deferred. Pain level now: 12/24. Additional comments: resting quietly, in no acute distress, states breathing is better, and not having any chest tightness/congestion. still c/o headache family at bedside . --18:57 Nichole Adair R.N. 19:15 08/08/16. BP: 119/63. HR: 89. RR: 20. O2 saturation: 95% on nasal cannula at 2 liters/minute. Temp: deferred. --19:32 Nichole Adair R.N. 19:30. ( US at bedside to do abd exam). --19:33 Nichole Adair R.N. 19:43 08/08/16. BP: 110/71. HR: 98. RR: 20. O2 saturation: 100% on nasal cannula at 2 liters/minute. Temp: deferred. Pain level now: 11/23. --19:45 Nichole Adair R.N. 19:40 08/08/2016 Site #1 removed upon discharge. --19:54 Nichole Adair R.N. 19:40 08/08/2016 IV Saline Lock Drip IV Discontinued: bag #1 STOPPED upon discharge. Total amount infused: 0 mL. IV patency established. IV site checked: no pain, redness, or swelling. IV flushed thoroughly. --19:55 Nichole Adair R.N. DISPOSITION / DISCHARGE 19:45. Condition at departure: improved and stable. No learning barriers present. Discharge instructions provided and reviewed with the patient and family. Reviewed medication(s) (tylenol, motrin). Patient and family verbalized understanding. Written instructions provided in Taiwanese. The patient was discharged home and accompanied by family. She left the Emergency Department in a wheelchair and via private vehicle. Family member driving. --19:54 Nichole Adair R.N. 19:45 08/08/16. BP: 110/71. HR: 98. RR: 20. O2 saturation: 100% on nasal cannula at 2 liters/minute. Temp: deferred. Pain level now: 11/23. --19:54 Nichole Adair R.N. Locked/Released at 08/08/2016 19:55 by Nichole Adair R.N.
--- NOTE | 2016-08-08 19:45 | ED CLINICAL REPORT ---
Clinical Report - Physicians/Mid Levels [facility] [address] [place] [address] 08/08/2016 18:04 Patient: MIRIAM WILLIAM Time Seen: 19:06 Aug 08 2016. Arrived- By private vehicle. Historian- patient. HISTORY OF PRESENT ILLNESS Chief Complaint: DYSPNEA. This started just prior to arrival and is still present. The dyspnea is described as moderate. No cough or sputum production. 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 no recent illness, No fevers. Patient with no new back pain. No chest pain. No recent travel. No lower extremity swelling, no history of DVT or PE.). REVIEW OF SYSTEMS No sore throat, fever, chills, nausea or diarrhea. All systems otherwise negative, except as recorded above. SOCIAL HISTORY Never smoker. No alcohol use. ADDITIONAL NOTES The nursing notes have been reviewed. PHYSICAL EXAM Vital Signs: 08/08/2016 18:00 BP: 88/57. HR: 113. RR: 38. O2 saturation: 94%. Temp: 99.3 F. Pain level now: 4/10. Appearance: Alert. Anxious. Appears to be in pain. Patient in mild distress. ENT: Ears normal. Nose normal. Neck: Normal inspection. CVS: Tachycardia. Heart sounds normal. Respiratory: No respiratory distress. Respiratory distress. Accessory muscle use. Wheezing present. Breath sounds normal. Abdomen: Moderate tenderness in the epigastric area. No distention. Back: Normal inspection. No CVA tenderness. Skin: Skin warm. Normal skin color. Neuro: Oriented X 3. LABS, X-RAYS, AND EKG EKG: EKG time: (1844). No acute process. No acute ischemia. Rate: 95. Normal NIC. Normal QRS complex. Normal axis. Normal ST and T waves and QT. The EKG appears to be a good tracing. Chest X-ray: (IMPRESSION: 1. Negative chest. Electronically Final signed by:Gabriel Ingram MD 08/08/2016 6:58:32 PM). Abdominal Sonogram: (IMPRESSION: 1. 3.3 cm gallstone 2. Hepatomegaly with steatosis Electronically Final signed by:Bernabe Lim MD 08/08/2016 8:04:15 PM). Laboratory Tests: CBC w Diff: (GUILLERMO: 08/08/2016 18:15) ( [facility] 08/08/2016 18:36) Final results Test Result Flag Units (Reference) WHITE BLOOD COUNT 12.6 H K/uL (4.5-11.5) RED BLOOD COUNT 5.03 M/uL (4.00-5.20) HEMOGLOBIN 14.8 gm/dL (12.0-16.0) HEMATOCRIT 44.8 % (36.0-46.0) MEAN CELL VOLUME 89 fL (80-100) MEAN CORPUSCULAR HGB 30 pg (26-34) MEAN CORPUSCULAR HGB CONC 33 g/dL (31-37) RED CELL DISTRIBUTION WIDTH 12.5 % (11.6-14.8) PLATELET COUNT 253 K/uL (150-400) NEUTROPHIL % 57.2 % (50-75) LYMPH % 37.4 % (25-40) MONO % 4.3 % (3-14) EOSINOPHIL % 0.7 % (0-4) BASOPHIL % 0.4 % (0-2) Troponin-I: (GUILLERMO: 08/08/2016 18:15) ( [facility] 08/08/2016 18:52) Final results Test Result Flag Units (Reference) TROPONIN I <0.05 L ng/mL (0.00-1.5) TROPONIN REFERENCE RANGE:<0.1 NEGATIVE0.1-1.5 INDETERMINANT>1.5 POSITIVE CMP: (GUILLERMO: 08/08/2016 18:15) ( [facility] 08/08/2016 18:47) Final results Test Result Flag Units (Reference) GLUCOSE 169 H mg/dL (70-110) BUN 11 mg/dL (7-18) CREATININE 0.6 mg/dL (0.6-1.3) Estimated GFR >60 mL/min Estimated GFR- >60 mL/min Note: Persistent reduction over 3 months in eGFR<60 mL/min/1.73 m2 defines CKD. Patients with eGFR values>=60 mL/min/1.73 m2 may also have CKD if evidence ofpersistent proteinuria. Additional information may be foundat www.kidney.org. SODIUM 140 mmol/L (136-145) POTASSIUM 3.2 L mmol/L (3.5-5.1) CHLORIDE 101 mmol/L (98-107) CARBON DIOXIDE 22 mmol/L (21-32) CALCIUM 9.5 mg/dL (8.5-10.1) TOTAL PROTEIN 8.0 g/dL (6.4-8.2) ALBUMIN 4.2 g/dL (3.3-5.0) BILIRUBIN, TOTAL 0.4 mg/dL (0.0-1.0) ALKALINE PHOSPHATASE 127 H U/L (46-116) AST (SGOT) 68 H U/L (15-37) ALT (SGPT) 111 H U/L (12-78) . PROGRESS AND PROCEDURES Course of Care: patient with elevated LFTs, with epigastric pain, thus ultrasound of the abdomen was ordered, with no signs of acute cholecystitis. Patient with improvement of her wheezing, as well as respiratory status after nebulizer treatment in the ER. Chest x-ray without any suggestive findings of infectious process. Patient has calmed down, she had a touch of hyperventilation upon arrival, and perhaps history of anxiety. 08/08/2016 19:45 BP: 110/71. HR: 98. RR: 20. O2 saturation: 100%. Pain level now: 5/10. 08/08/2016 19:43 BP: 110/71. HR: 98. RR: 20. O2 saturation: 100%. Pain level now: 5/10. Patient is stable. Symptoms better. Patient/family counseled. Disposition: Discharged. CLINICAL IMPRESSION Mild persistent asthma. Diabetes. Elevated LFT. INSTRUCTIONS No strenuous activity. Rest. (hydrate plenty). OTC Medications: Take OTC medications according to label instructions. Available over the counter. Acetaminophen (available over the counter): take according to label instructions. Motrin (available over the counter): take according to label instructions. Follow-up: Follow up with your doctor in four days as needed. (Electronically signed by Vicenta Beaver P.ASavana 08/08/2016 21:29)
--- NOTE | 2016-08-08 20:04 | DIAGNOSTIC IMAGING REPORT ---
PROCEDURE: US ABDOMEN ULTRASOUND-LIMITED INDICATION: RUQ PAIN, initial encounter TECHNIQUE: Hameed scale and color Doppler sonographic images of the abdomen were obtained. COMPARISON: CT abdomen/pelvis 07/20/2015 FINDINGS: Enlarged liver (21 cm) with increased echogenicity consistent with steatosis seen on CT scan. 3.3 cm gallstone. No wall thickening or pericholecystic fluid. Normal CBD measures 4.4 mm. Negative Jung's sign. Aorta and IVC are patent. Hepatopetal flow. Normal right kidney measures 11.6 cm. IMPRESSION: 1. 3.3 cm gallstone 2. Hepatomegaly with steatosis
--- NOTE | 2016-08-08 21:30 | ED MAR SUMMARY ---
..... Medication Administration Record [facility] [address] [place] [address] Patient: MIRIAM WILLIAM Visit ID: [id number] 41y, F Weight: 81.6 kg Height/Length: 64 in BMI: 30.9 ALLERGIES: No Known Drug Allergy Given 18:14 08/08/2016 Rose Agee, Medication Administered: DUONEB [NEB TX] (IPRATROPIUM-ALBUTEROL), Dose: 1 unit dose Nebulizer Neb TX. Medication Ordered: DuoNeb Neb Tx 1 unit dose (NOW).
--- NOTE | 2016-08-08 21:30 | ED MED RECONCILIATION SUMMARY ---
Patient: MIRIAM WILLIAM Medication Reconciliation Report [facility] VisitID: [id number] [address] [place] [address] 41y, F Registration Date/Time: 08/08/2016 Weight: 81.6 kg Height/Length: 64 in. BMI: 30.9 ALLERGIES: No Known Drug Allergy The patient's Home Medications are listed below: THE FOLLOWING MEDICATIONS NEED TO BE RECONCILED: Albuterol Sulfate Inhalation 2 puffs, PRN Glimepiride Oral (2 mg) 1 tablet, daily The source(s) of the original Home Medication information: Not obtained. The following Medications were given to the patient in the Emergency Department: Duoneb [Neb Tx] Neb TX 1 unit dose, administered: 08/08/2016 6:14:00 PM The following Medications were prescribed to the patient: Take OTC medications according to label instructions. Available over the counter. -- Vicenta Beaver, P.A.-C Acetaminophen (available over the counter): take according to label instructions. -- Vicenta Beaver, P.A.-C Motrin (available over the counter): take according to label instructions. -- Vicenta Beaver, P.A.-C
--- NOTE | 2016-08-08 21:30 | ED MAR SUMMARY ---
..... Medication Administration Record [facility] [address] [place] [address] Patient: MIRIAM WILLIAM Visit ID: [id number] 41y, F Weight: 81.6 kg Height/Length: 64 in BMI: 30.9 ALLERGIES: No Known Drug Allergy Given 18:14 08/08/2016 Rose Agee, Medication Administered: DUONEB [NEB TX] (IPRATROPIUM-ALBUTEROL), Dose: 1 unit dose Nebulizer Neb TX. Medication Ordered: DuoNeb Neb Tx 1 unit dose (NOW).
--- NOTE | 2016-08-08 21:30 | ED MED RECONCILIATION SUMMARY ---
Patient: MIRIAM WILLIAM Medication Reconciliation Report [facility] VisitID: [id number] [address] [place] [address] 41y, F Registration Date/Time: 08/08/2016 Weight: 81.6 kg Height/Length: 64 in. BMI: 30.9 ALLERGIES: No Known Drug Allergy The patient's Home Medications are listed below: THE FOLLOWING MEDICATIONS NEED TO BE RECONCILED: Albuterol Sulfate Inhalation 2 puffs, PRN Glimepiride Oral (2 mg) 1 tablet, daily The source(s) of the original Home Medication information: Not obtained. The following Medications were given to the patient in the Emergency Department: Duoneb [Neb Tx] Neb TX 1 unit dose, administered: 08/08/2016 6:14:00 PM The following Medications were prescribed to the patient: Take OTC medications according to label instructions. Available over the counter. -- Vicenta Beaver, P.A.-C Acetaminophen (available over the counter): take according to label instructions. -- Vicenta Beaver, P.A.-C Motrin (available over the counter): take according to label instructions. -- Vicenta Beaver, P.A.-C
--- NOTE | 2016-08-08 21:30 | ED DISCHARGE INSTRUCTIONS ---
Patient: MIRIAM WILLIAM General Instructions [facility] VisitID: [id number] [place] [address] 41y, F Registration Date/Time: 08/08/2016 Mild persistent asthma. Diabetes. Elevated LFT. INSTRUCTIONS No strenuous activity. Rest. (hydrate plenty). OTC Medications: Take OTC medications according to label instructions. Available over the counter. Acetaminophen (available over the counter): take according to label instructions. Motrin (available over the counter): take according to label instructions. Follow-up: Follow up with your doctor in four days as needed. ADDITIONAL INFORMATION Asthma [Adult] Asthma is a disease where the small air passages within the lung go into spasm and restrict the flow of air. Inflammation and swelling of the airways cause further restriction. During an acute asthma attack, these factors cause difficulty breathing, wheezing, cough and chest tightness. An asthma attack can be triggered by many things. Common triggers include the common cold, bronchitis, pneumonia, irritants such as smoke or pullutants in the air, emotional upset and heavy exercise. Inmany adults with asthma, allergies todust, mold, pollen and animal dander can cause an asthma attack. Skipping doses of daily asthma medicine can also bring on an asthma attack. Asthma can be controlled with proper medicines and decreased exposure to known allergens. Home Care: Take prescribed medicine exactly at the times advised. If you have a hand-held inhaler or aerosol breathing medicine, do not use it more than once every four hours, unless told to do so. (If you need this medicine more than every four hours, you may need to return to the Emergency Room.) If prescribed an antibiotic or prednisone, take all of the medicine even if you are feeling better after a few days. Do not smoke. Avoid being exposed to the smoke of others. Some persons with asthma have worsening of their symptoms when they take aspirin and non-steroidal medicines like ibuprofen (Motrin, Advil) and naproxen (Aleve, Naprosyn). Talk to your doctor if you think this may apply to you. Acetaminophen (Tylenol)should be safe to use. Follow Up with your doctor, or as advised by our staff. Always bring all of your current medicines with you for your doctor to see. If you do not already have one, talk to your doctor about developing a personalized "Asthma Action Plan." [NOTE: A pneumococcal vaccine and yearly flu shot (every fall) are recommended. Ask your doctor about this.] Get Prompt Medical Attention if any of the following occur: Increased wheezing or shortness of breath Need to use your inhalers more often than usual without relief Fever of 100.4F (38C) or higher, or as directed by your healthcare provider Coughing up lots of dark-colored or bloody sputum (mucus) Chest pain with each breath You do not start to improve within 24 hours Call 911 If Any Of The Following Occur : Trouble walking or talking because of shortness of breath If you use a peak flow meter andyou are still in the red zone (less than 50 percent) 15 minutes after using inhaler medication Lips or fingernails turning flores or blue You have been given the following additional information: Asthma, Acute (Adult) No strenuous activity. Rest. (Electronically signed by Vicenta Beaver P.A.-C 08/08/2016 21:29)
== END 2016-08-08 19:45 | disposition home or self-care (01) ==
LOC: ED SRH 18:05
DX: J45.30 Mild persistent asthma, uncomplicated (principal); E11.9 Type 2 diabetes mellitus without complications; R79.89 Other specified abnormal findings of blood chemistry
CPT/HCPCS: 90098; 90100; 90616; 95059

== ENCOUNTER 2016-10-13 11:48 | Emergency (ER) | payer OTHER ==
--- NOTE | 2016-10-13 14:52 | ED CLINICAL REPORT ---
Clinical Report - Physicians/Mid Levels [facility] [address] [place] [address] 10/13/2016 11:48 Patient: MIRIAM WILLIAM Arrived- By private vehicle. Historian- patient. HISTORY OF PRESENT ILLNESS Chief Complaint: SORE THROAT. left. This started past 4 days and is still present. It was gradual in onset and has been constant but is not gone now. Pain described as moderate. The patient has had a sore throat and nasal congestion. She has had facial pain (left). (lso reports a cough. Patient states that she is able to scrape off whitethick material from the back of her throat.). Similar symptoms previously: None. Recent medical care: Not recently seen/assessed. REVIEW OF SYSTEMS The patient has had fever. No difficulty breathing, chest pain or skin rash. All systems otherwise negative, except as recorded above. PAST HISTORY See nurses notes. Medications: GlyBURIDE Oral. Allergies: No Known Drug Allergy. SOCIAL HISTORY Never smoker. No alcohol use or drug use. No recent travel. Is a local resident. ADDITIONAL NOTES The nursing notes have been reviewed. PHYSICAL EXAM Vital Signs: 10/13/2016 11:56 BP: 107/74. HR: 81. RR: 18. O2 saturation: 98%. Temp: 98.7 F. Blood pressure normal. Oxygen saturation normal. Appearance: Alert. No acute distress. Head: Normal external inspection. No facial erythema. No tenderness to palpation/percussion over the sinuses, mandibular swelling or maxillary swelling. Eyes: Pupils equal, round and reactive to light. Conjunctivae and eyelids normal. No conjunctival findings. ENT: Ears normal. Nose normal. Mild generalized pharyngeal erythema. No pharyngeal vesicles or ulcerations. No right tonsillar exudate, right tonsillar abscess, right tonsillar swelling, right peritonsillitis, left tonsillar exudate, left tonsillar abscess or left tonsillar swelling. Lips normal. Gums normal. No trismus present. Uvula midline. No mouth ulcerations, tonsillar exudate, peritonsillar mass or muffled or hoarse voice. (No brawny edema). Neck: Trachea midline. No adenopathy. CVS: Normal heart rate and rhythm. Heart sounds normal. Pulses normal. Respiratory: No respiratory distress. Breath sounds normal. Chest nontender. Abdomen: Soft and nontender. No organomegaly. Skin: Normal skin color. No rash. Normal skin turgor. Extremities: Extremities exhibit normal ROM. Extremities nontender. LABS, X-RAYS, AND EKG Laboratory Tests: Culture, Strep Screen: (GUILLERMO: 10/13/2016 14:00) ( MsgRcvd 10/15/2016 09:09) Final results Test Result Flag Units (Reference) RAPID STREP SCREEN - THROAT DATE: 10/13/16 NEGATIVE SCREEN: RAPID STREP SCREEN NEGATIVE; CONFIRMATION TO FOLLOW . DATE: 10/15/16 NO BETA STREP ISOLATED: NO BETA STREP ISOLATED . PROGRESS AND PROCEDURES Course of Care: the patient is a pleasant 41-year-old female presenting for evaluation of sore throat and facial pain. Patient does not have any signs of Earl's angina, retropharyngeal abscess, or peritonsillar abscess. Patient does have a cough with her sore throat. Because of the patient's unclear Centor criteria,we'll order a rapid strep test. Patient is agreeable to the treatment and plan. Do not feel patient has more sinister type of infection occurring at this time. If the rapid strep test is negative, viral etiology likely. Patient's rapid strep will had returned. No acute abnormalities noted. Patient is resting in bed and in no acute distress. Patient continues to be nontoxic. Because of the patient's negative workup, viral etiology likely favored. Symptomatically treatment recommended. Discussed the patient workup here in the emergency department including home care, follow-up, and return precautions. All questions have been answered. The patient expressed understanding of these instructions and was agreeable to them. CLINICAL IMPRESSION 10/13/2016 11:56 BP: 107/74. HR: 81. RR: 18. O2 saturation: 98%. Temp: 98.7 F. Blood pressure normal. Oxygen saturation normal. Acute viral pharyngitis INSTRUCTIONS Do not work today. Warnings: GENERAL WARNINGS: Return or contact your physician immediately if your condition worsens or changes unexpectedly, if not improving as expected, or if other problems arise. Specifically return if pain, vomiting, bleeding, breathing difficulty or fever. Your Current Medications: CONTINUE TAKING THE FOLLOWING MEDICATIONS: GlyBURIDE Oral. Prescription Medications: Motrin 600 mg tablets: take 1 tablet orally every 6 hours as needed for pain, stiffness, swelling or fever. Dispense thirty (30). No refill. Substitution is permissible. OTC Medications: Acetaminophen (available over the counter): take according to label instructions. Claritin 10 mg (available over the counter): take 1 tablet orally every 12 hours as needed for allergies or congestion. Dispense twenty (20). No refill. Substitution is permissible. Follow-up: Return to the emergency department as needed. Follow up with your doctor in three. Reason for referral: recheck today's concerns. Summary of care provided to patient via paper. Screening today revealed the patient's blood pressure to be in the normal range. The patient should follow up with a primary care provider for blood pressure management. Understanding of the discharge instructions verbalized by patient. (Electronically signed by Sanjeev Inman Dr. 10/18/2016 10:23)
--- NOTE | 2016-10-13 14:52 | ED NURSING NOTES ---
Clinical Report - Nurses [facility] [address] [place] [address] 10/13/2016 11:48 [id number] Triage time 11:56 Oct 13 2016. Acuity: LEVEL 4. Chief Complaint: SORE THROAT and FORIEGN BODY SENSATION IN THROAT, JAW PAIN and SWELLING OF JAW / FACE and CHILLS and FEVER (left side). CHINTAN COMA SCORE: [place] Coma Scale: 15- eyes open spontaneously (4); best verbal response- oriented x 4 (5); best motor response- obeys commands (6). --12:01 Diego Arteaga R.N. 11:56 10/13/16. BP: 107/74. HR: 81. RR: 18. O2 saturation: 98%. Temp: 98.7 F. Pain level now 810. --12:01 Diego Arteaga R.N. Weight: 79.3 kg stated. Height/Length: 66 inches Per Patient. BMI: 28.2. --12:00 Diego Arteaga R.N. Medications GlyBURIDE Oral. --11:58 Diego Arteaga R.N. Allergies No Known Drug Allergy. --11:58 Diego Arteaga R.N. History Arrived by private vehicle. Historian: patient. Accompanied by family. ( 4 days ago it started with sore throat now its swollen with a bad odor and patient feels like something is on the top of her throat. White patches she has noticed in mouth.). She has had mouth sores, facial pain, fever, ear pain and sinus pain. Reports enlarged lymph nodes. No hoarseness. PAST MEDICAL HX: No history of dental caries. No history of strep throat, abscess or mononucleosis. Immunizations: up-to-date. Last normal menstrual period- 2 days ago. SOCIAL HX: Never smoker. Occasional alcohol use. No drug use. SELF HARM ASSESSMENT: A self harm assessment was performed. The patient answered "no" to the question "Have you recently felt down, depressed, or hopeless?" and "Do you have thoughts of harming or killing yourself?". FALL RISK ASSESSMENT: Fall risk assessment completed. No fall risk identified. NUTRITIONAL RISK ASSESSMENT: The nutritional risk assessment revealed no deficiencies. FUNCTIONAL ASSESSMENT: Functional assessment: no impairments noted. LEARNING NEEDS ASSESSMENT: The learning needs assessment revealed no barriers. ABUSE ASSESSMENT: Abuse assessment: (yes) The patient was asked "Do you feel safe in your home?". SKIN INTEGRITY ASSESSMENT: Skin integrity risk assessment completed. No skin integrity risk identified. --12: Diego Arteaga R.N. PROBLEMS: Asthma. Lumbar Strain. Anxiety Reaction. Diabetes Mellitus. -- Diego Arteaga R.N. ADDITIONAL SURGERIES: . -- Diego Arteaga R.N. Interventions ID band on patient. --12: Diego Arteaga R.N. PHYSICAL ASSESSMENT Ambulatory to room. GENERAL / NEURO / PSYCH: Alert. Oriented X 4. Appears in pain. HEENT: Facial swelling present. Pupils equal, round and reactive to light. Pharynx within normal limits. Voice within normal limits. ( Throat tenderness with redness). Mucous membranes are pink. RESPIRATORY: Respirations not labored. CVS: Capillary refill less than 2 seconds. SKIN: Skin is warm and dry. Normal skin turgor. --12: Diego Arteaga R.N. NURSING PROGRESS NOTES Pulse oximeter and NIBP monitor placed on patient. Head of bed elevated. Reassurance given. Call light placed in reach. Side rails up x 1. Bed placed in lowest position. --12:02 Diego Arteaga R.N. DISPOSITION / DISCHARGE Departure time: 15:Oct 13 2016. Condition at departure: unchanged. No learning barriers present. Discharge instructions provided and reviewed with the patient. Reviewed warnings. Reviewed medication(s). Treatments reviewed. Reviewed referrals. Work note given. Patient verbalized understanding. Written instructions provided in [place]. The patient was discharged home and accompanied by family. She left the Emergency Department ambulatory and via private vehicle. Patient driving. --15:03 Diego Arteaga R.N. 15:01 10/13/16. BP: 118/72. HR: 81. RR: 18. O2 saturation: 98%. Temp: 98.6 F. Pain level now 01/23. --15:03 Diego Arteaga R.N. Locked/Released at 10/13/2016 16:46 by Diego Arteaga R.N.
--- NOTE | 2016-10-13 14:52 | ED NURSING NOTES ---
Clinical Report - Nurses [facility] [address] [place] [address] 10/13/2016 11:48 [id number] Triage time 11:56 Oct 13 2016. Acuity: LEVEL 4. Chief Complaint: SORE THROAT and FORIEGN BODY SENSATION IN THROAT, JAW PAIN and SWELLING OF JAW / FACE and CHILLS and FEVER (left side). CHINTAN COMA SCORE: [place] Coma Scale: 15- eyes open spontaneously (4); best verbal response- oriented x 4 (5); best motor response- obeys commands (6). --12:01 Diego Arteaga R.N. 11:56 10/13/16. BP: 107/74. HR: 81. RR: 18. O2 saturation: 98%. Temp: 98.7 F. Pain level now 810. --12:01 Diego Arteaga R.N. Weight: 79.3 kg stated. Height/Length: 66 inches Per Patient. BMI: 28.2. --12:00 Diego Arteaga R.N. Medications GlyBURIDE Oral. --11:58 Diego Arteaga R.N. Allergies No Known Drug Allergy. --11:58 Diego Arteaga R.N. History Arrived by private vehicle. Historian: patient. Accompanied by family. ( 4 days ago it started with sore throat now its swollen with a bad odor and patient feels like something is on the top of her throat. White patches she has noticed in mouth.). She has had mouth sores, facial pain, fever, ear pain and sinus pain. Reports enlarged lymph nodes. No hoarseness. PAST MEDICAL HX: No history of dental caries. No history of strep throat, abscess or mononucleosis. Immunizations: up-to-date. Last normal menstrual period- 2 days ago. SOCIAL HX: Never smoker. Occasional alcohol use. No drug use. SELF HARM ASSESSMENT: A self harm assessment was performed. The patient answered "no" to the question "Have you recently felt down, depressed, or hopeless?" and "Do you have thoughts of harming or killing yourself?". FALL RISK ASSESSMENT: Fall risk assessment completed. No fall risk identified. NUTRITIONAL RISK ASSESSMENT: The nutritional risk assessment revealed no deficiencies. FUNCTIONAL ASSESSMENT: Functional assessment: no impairments noted. LEARNING NEEDS ASSESSMENT: The learning needs assessment revealed no barriers. ABUSE ASSESSMENT: Abuse assessment: (yes) The patient was asked "Do you feel safe in your home?". SKIN INTEGRITY ASSESSMENT: Skin integrity risk assessment completed. No skin integrity risk identified. --12: Diego Arteaga R.N. PROBLEMS: Asthma. Lumbar Strain. Anxiety Reaction. Diabetes Mellitus. -- Diego Arteaga R.N. ADDITIONAL SURGERIES: . -- Diego Arteaga R.N. Interventions ID band on patient. --12: Diego Arteaga R.N. PHYSICAL ASSESSMENT Ambulatory to room. GENERAL / NEURO / PSYCH: Alert. Oriented X 4. Appears in pain. HEENT: Facial swelling present. Pupils equal, round and reactive to light. Pharynx within normal limits. Voice within normal limits. ( Throat tenderness with redness). Mucous membranes are pink. RESPIRATORY: Respirations not labored. CVS: Capillary refill less than 2 seconds. SKIN: Skin is warm and dry. Normal skin turgor. --12: Diego Arteaga R.N. NURSING PROGRESS NOTES Pulse oximeter and NIBP monitor placed on patient. Head of bed elevated. Reassurance given. Call light placed in reach. Side rails up x 1. Bed placed in lowest position. --12:02 Diego Arteaga R.N. DISPOSITION / DISCHARGE Departure time: 15:Oct 13 2016. Condition at departure: unchanged. No learning barriers present. Discharge instructions provided and reviewed with the patient. Reviewed warnings. Reviewed medication(s). Treatments reviewed. Reviewed referrals. Work note given. Patient verbalized understanding. Written instructions provided in [place]. The patient was discharged home and accompanied by family. She left the Emergency Department ambulatory and via private vehicle. Patient driving. --15:03 Diego Arteaga R.N. 15:01 10/13/16. BP: 118/72. HR: 81. RR: 18. O2 saturation: 98%. Temp: 98.6 F. Pain level now 01/23. --15:03 Diego Arteaga R.N. Locked/Released at 10/13/2016 16:46 by Diego Arteaga R.N.
--- NOTE | 2016-10-13 14:52 | ED ORDER SUMMARY ---
..... Patient: MIRIAM WILLIAM OrderSheet [facility] VisitID: [id number] [address] [place] [address] 41y, F Registration Date/Time: 10/13/2016 ORDER SHEET Weight: 79.3 kg (stated) Allergies: No Known Drug Allergy GENERAL ORDERS: Culture, Strep Screen Urgent (12:41 10/13/2016 Shalonda Espino) ([facility] 12:48 [facility]) MEDICATION ORDERS: IV FLUIDS: ORDER SHEET NOTES: [Electronically signed by Diego Arteaga R.N. (16:46 10/13/2016)] [Electronically signed by Sanjeev Inman Dr. (10:23 10/18/2016)] [Electronically locked/signed by Diego Arteaga R.N. (16:46 10/13/2016)]
--- NOTE | 2016-10-13 14:52 | ED ORDER SUMMARY ---
..... Patient: MIRIAM WILLIAM OrderSheet [facility] VisitID: [id number] [address] [place] [address] 41y, F Registration Date/Time: 10/13/2016 ORDER SHEET Weight: 79.3 kg (stated) Allergies: No Known Drug Allergy GENERAL ORDERS: Culture, Strep Screen Urgent (12:41 10/13/2016 Shalonda Espino) ([facility] 12:48 [facility]) MEDICATION ORDERS: IV FLUIDS: ORDER SHEET NOTES: [Electronically signed by Diego Arteaga R.N. (16:46 10/13/2016)] [Electronically signed by Sanjeev Inman Dr. (10:23 10/18/2016)] [Electronically locked/signed by Diego Arteaga R.N. (16:46 10/13/2016)]
--- NOTE | 2016-10-18 10:24 | ED DISCHARGE INSTRUCTIONS ---
Patient: MIRIAM WILLIAM General Instructions [facility] VisitID: [id number] [place] [address] 41y, F Registration Date/Time: 10/13/2016 10/13/2016 11:56 BP: 107/74. HR: 81. RR: 18. O2 saturation: 98%. Temp: 98.7 F. Blood pressure normal. Oxygen saturation normal. Acute viral pharyngitis INSTRUCTIONS Do not work today. Warnings: GENERAL WARNINGS: Return or contact your physician immediately if your condition worsens or changes unexpectedly, if not improving as expected, or if other problems arise. Specifically return if pain, vomiting, bleeding, breathing difficulty or fever. Your Current Medications: CONTINUE TAKING THE FOLLOWING MEDICATIONS: GlyBURIDE Oral. Prescription Medications: Motrin 600 mg tablets: take 1 tablet orally every 6 hours as needed for pain, stiffness, swelling or fever. Dispense thirty (30). No refill. Substitution is permissible. OTC Medications: Acetaminophen (available over the counter): take according to label instructions. Claritin 10 mg (available over the counter): take 1 tablet orally every 12 hours as needed for allergies or congestion. Dispense twenty (20). No refill. Substitution is permissible. Follow-up: Return to the emergency department as needed. Follow up with your doctor in three. Reason for referral: recheck today's concerns. Summary of care provided to patient via paper. Screening today revealed the patient's blood pressure to be in the normal range. The patient should follow up with a primary care provider for blood pressure management. Understanding of the discharge instructions verbalized by patient. ADDITIONAL INFORMATION Viral Pharyngitis (Sore Throat) Your throat pain is due to an infection called "Viral Pharyngitis", commonly known as "Sore Throat". This is a contagious illness. It is spread through the air by coughing, kissing or by touching others after touching your mouth or nose. Symptoms include throat pain worse with swallowing, aching all over, headache and fever. Unlike strep throat, which is a bacterial infection, this illness does not require treatment with an antibiotic. Home Care: If your symptoms are severe, rest at home for the first 2-3 days. Children: Use acetaminophen (Tylenol) for fever, fussiness or discomfort. In infants over six months of age, you may use ibuprofen (Children's Motrin) instead of Tylenol. [NOTE: If your child has chronic liver or kidney disease or ever had a stomach ulcer or GI bleeding, talk with your rita doctor before using these medicines.] (Aspirin should never be used in anyone under 18 years of age who is ill with a fever. It may cause severe liver damage.) Adults: You may use acetaminophen (Tylenol) or ibuprofen (Motrin, Advil) to control pain or fever, unless another medicine was prescribed. [NOTE: If you have chronic liver or kidney disease or ever had a stomach ulcer or GI bleeding, talk with your doctor before using these medicines.] Throat lozenges or sprays (Chloraseptic and others) will reduce pain. Gargling with warm salt water will also reduce throat pain. Dissolve 1/2 teaspoon of salt in 1 glass of warm water. This is especially useful just before meals. Follow Up with your doctor or as directed by our staff if you are not improving over the next week. Get Prompt Medical Attention if any of the following occur: Fever over 100.5F (38.0C) oral, or over 101.5F (38.6C) rectal for more than three days New or worsening ear pain, sinus pain or headache Painful lumps in the back of your neck Unable to swallow liquids or open your mouth wide due to throat pain Trouble breathing or noisy breathing Muffled voice New rash Ibuprofen Oral tablet What is this medicine? IBUPROFEN (eye BYOO proe fen) is a non-steroidal anti-inflammatory drug (NSAID). It is used for dental pain, fever, headaches or migraines, osteoarthritis, rheumatoid arthritis, or painful monthly periods. It can also relieve minor aches and pains caused by a cold, flu, or sore throat. How should I use this medicine? Take this medicine by mouth with a glass of water. Follow the directions on the prescription label. Take this medicine with food if your stomach gets upset. Try to not lie down for at least 10 minutes after you take the medicine. Take your medicine at regular intervals. Do not take your medicine more often than directed. A special MedGuide will be given to you by the pharmacist with each prescription and refill. Be sure to read this information carefully each time. Talk to your ball sorter regarding the use of this medicine in children. Special care may be needed. What side effects may I notice from receiving this medicine? Side effects that you should report to your doctor or health direct care professional as soon as possible: allergic reactions like skin rash, itching or hives, swelling of the face, lips, or tongue black or bloody stools, blood in the urine or in vomit breathing problems changes in vision chest pain general ill feeling or flu-like symptoms nausea or vomiting redness, blistering, peeling or loosening of the skin, including inside the mouth slurred speech or weakness on one side of the body stomach pain unexplained weight gain or swelling unusually weak or tired yellowing of eyes or skin Side effects that usually do not require medical attention (report to your doctor or health direct care professional if they continue or are bothersome): constipation or diarrhea dizziness gas or heartburn stomach upset What may interact with this medicine? Do not take this medicine with any of the following medications: cidofovir ketorolac methotrexate pemetrexed This medicine may also interact with the following medications: alcohol aspirin diuretics lithium other drugs for inflammation like prednisone warfarin What if I miss a dose? If you miss a dose, take it as soon as you can. If it is almost time for your next dose, take only that dose. Do not take double or extra doses. Where should I keep my medicine? Keep out of the reach of children. Store at room temperature between 15 and 30 degrees C (59 and 86 degrees F). Keep container tightly closed. Throw away any unused medicine after the expiration date. What should I tell my health care provider before I take this medicine? They need to know if you have any of these conditions: asthma cigarette smoker drink more than 3 alcohol containing drinks a day heart disease or circulation problems such as heart failure or leg edema (fluid retention) high blood pressure kidney disease liver disease stomach bleeding or ulcers an unusual or allergic reaction to ibuprofen, aspirin, other NSAIDS, other medicines, foods, dyes, or preservatives or trying to get breast-feeding What should I watch for while using this medicine? Tell your doctor or healthcare professional if your symptoms do not start to get better or if they get worse. This medicine does not prevent heart attack or stroke. In fact, this medicine may increase the chance of a heart attack or stroke. The chance may increase with longer use of this medicine and in people who have heart disease. If you take aspirin to prevent heart attack or stroke, talk with your doctor or health direct care professional. Do not take other medicines that contain aspirin, ibuprofen, or naproxen with this medicine. Side effects such as stomach upset, nausea, or ulcers may be more likely to occur. Many medicines available without a prescription should not be taken with this medicine. This medicine can cause ulcers and bleeding in the stomach and intestines at any time during treatment. Ulcers and bleeding can happen without warning symptoms and can cause . To reduce your risk, do not smoke cigarettes or drink alcohol while you are taking this medicine. You may get drowsy or dizzy. Do not drive, use machinery, or do anything that needs mental alertness until you know how this medicine affects you. Do not stand or sit up quickly, especially if you are an older patient. This reduces the risk of dizzy or fainting spells. This medicine can cause you to bleed more easily. Try to avoid damage to your teeth and gums when you brush or floss your teeth. You have been given the following additional information: Pharyngitis, Viral Ibuprofen Oral tablet Do not work today. (Electronically signed by Sanjeev Inman Dr. 10/18/2016 10:23)
--- NOTE | 2016-10-18 10:24 | ED MED RECONCILIATION SUMMARY ---
Patient: MIRIAM WILLIAM Medication Reconciliation Report [facility] VisitID: [id number] [place] [address] 41y, F Registration Date/Time: 10/13/2016 Weight: 79.3 kg Height/Length: 66 in. BMI: 28.2 ALLERGIES: No Known Drug Allergy The patient's Home Medications are listed below: CONTINUE TAKING THE FOLLOWING MEDICATIONS: GlyBURIDE Oral The source(s) of the original Home Medication information: Not obtained. The following Medications were given to the patient in the Emergency Department: None. The following Medications were prescribed to the patient: Acetaminophen (available over the counter): take according to label instructions. -- Sanjeev Inman Dr. Motrin 600 mg tablets: take 1 tablet orally every 6 hours as needed for pain, stiffness, swelling or fever. Dispense thirty (30). No refill. Substitution is permissible. -- Sanjeev Inman Dr. Claritin 10 mg (available over the counter): take 1 tablet orally every 12 hours as needed for allergies or congestion. Dispense twenty (20). No refill. Substitution is permissible. -- Sanjeev Inman Dr.
--- NOTE | 2016-10-18 10:24 | ED MAR SUMMARY ---
..... Medication Administration Record [facility] [address] [place], [place] [id number] Patient: MIRIAM WILLIAM Visit ID: [id number] 41y, F Weight: 79.3 kg Height/Length: 66 in BMI: 28.2 ALLERGIES: No Known Drug Allergy
--- NOTE | 2016-10-18 10:24 | ED MAR SUMMARY ---
..... Medication Administration Record [facility] [address] [place], [place] [id number] Patient: MIRIAM WILLIAM Visit ID: [id number] 41y, F Weight: 79.3 kg Height/Length: 66 in BMI: 28.2 ALLERGIES: No Known Drug Allergy
--- NOTE | 2016-10-18 10:24 | ED MED RECONCILIATION SUMMARY ---
Patient: MIRIAM WILLIAM Medication Reconciliation Report [facility] VisitID: [id number] [place] [address] 41y, F Registration Date/Time: 10/13/2016 Weight: 79.3 kg Height/Length: 66 in. BMI: 28.2 ALLERGIES: No Known Drug Allergy The patient's Home Medications are listed below: CONTINUE TAKING THE FOLLOWING MEDICATIONS: GlyBURIDE Oral The source(s) of the original Home Medication information: Not obtained. The following Medications were given to the patient in the Emergency Department: None. The following Medications were prescribed to the patient: Acetaminophen (available over the counter): take according to label instructions. -- Sanjeev Inman Dr. Motrin 600 mg tablets: take 1 tablet orally every 6 hours as needed for pain, stiffness, swelling or fever. Dispense thirty (30). No refill. Substitution is permissible. -- Sanjeev Inman Dr. Claritin 10 mg (available over the counter): take 1 tablet orally every 12 hours as needed for allergies or congestion. Dispense twenty (20). No refill. Substitution is permissible. -- Sanjeev Inman Dr.
== END 2016-10-13 15:00 | disposition home or self-care (01) ==
LOC: ED SRH 11:48
DX: J02.9 Acute pharyngitis, unspecified (principal); Z79.899 Other long term (current) drug therapy
CPT/HCPCS: 90154; 90159